=== PATIENT | female | born 1955 ===

== ENCOUNTER 2024-07-01 08:45 | Inpatient (IN) | payer OTHER ==
[~2024-07-01] VITALS: Ht 165.1 cm; Wt 59.9 kg
[2024-07-03 11:48] LABS: HEMATOCRIT 37.3 % (36.0-45.00); HEMOGLOBIN 12.6 g/dL (12.0-15.00); MEAN CELL VOLUME 88.7 fL (80.00-100.00); MEAN CORPUSCULAR HGB CONC 33.8 g/dl (32.0-36.0); PLATELET COUNT 250 K/uL (150-450); RED CELL DISTRIBUTION WIDTH 14.4 % (11.5-14.5)
[2024-07-03] MEDS ORDERED: VALSARTAN80 MG (11:51)
[2024-07-03] MEDS ORDERED: FLUTICASONE (11:52)
[2024-07-03] MEDS ORDERED: SALMETEROL (11:52)
[2024-07-03] MEDS ORDERED: ATROVENT (11:52)
[2024-07-03] MEDS ORDERED: VITAMIN D3 (11:53)
[2024-07-03] MEDS ORDERED: VITAMIN D2 (11:53)
[2024-07-03] MEDS ORDERED: PANADOL EXTRA500 MG (11:53)
[2024-07-03 12:03] LABS: PH,URINE 7.5 (5.0-8.0); URINE APPEARANCE Clear; URINE BILIRRUBIN Negative (NEGATIVE); URINE BLOOD Negative; URINE COLOR Yellow; URINE GLUCOSE Negative (NEGATIVE); URINE KETONE Negative (NEGATIVE); URINE LEUKOCYTE Negative; URINE NITRATE Negative; URINE PROTEIN Negative (NEGATIVE); URINE UROBILINOGEN 0.2 E.U./dl
[2024-07-03 12:07] LABS: URINE BACTERIA 138.4 uL (0.0-1933); URINE EPITHELIAL CELLS 2.9 uL (0.0-38.8); URINE RBC 3.6 uL (0.0-20.8); URINE WBC 3.2 uL (0.0-23.2)
[2024-07-03 12:29] LABS: INR 0.98; PARTIAL THROMBOPLASTIN TIME 26.9 SECONDS (22.0-34.0); PROTHROMBIN TIME 10.7 SECONDS (9.0-11.5)
[2024-07-03 12:34] LABS: ALBUMIN 3.8 gm/dL (3.4-5.0); BILIRUBIN TOTAL 1.2 mg/dL (0.3-1.2); CALCIUM 11.6 mg/dL (8.5-10.1); CREATININE SERUM 0.83 mg/dL (0.55-1.02); GFR 68.78; GLOBULINA 3.1 G/DL (2.4-3.5); POTASSIUM 3.55 mEq/L (3.5-5.1); TOTAL PROTEIN 6.9 gm/dL (6.4-8.2)
[2024-07-04] MEDS ORDERED: ADVAIR HFA 115/12 GM (09:00)
[2024-07-04] MEDS ORDERED: ATROVENT HFA12.9 GM (09:00)
[2024-07-04] MEDS ORDERED: VITAMIN D21250 MCG (09:01)
[2024-07-04] MEDS ORDERED: ACETAMINOPHEN500 M1 (09:01)
[2024-07-04] MEDS ORDERED: VITAMIN D31250 MC1 (09:01)
[2024-07-04] MEDS ORDERED: TRAMADOL HCL 50 MG TABLET PO SCH (12:56)
[2024-07-04] MEDS ORDERED: ACETAMINOPHEN 500 MG GEL..CAP PO SCH (12:57)
[2024-07-04] MEDS ORDERED: ENALAPRILAT DIHYDRATE 1.25 MG/ML VIAL IV PRN (13:00)
[2024-07-04] MEDS ORDERED: ONDANSETRON HCL 2 MG/ML VIAL IV PRN (13:00)
[2024-07-04] MEDS ORDERED: MORPHINE SULFATE 4 MG/ML VIAL IV ONE (14:20)
[2024-07-04] MEDS ORDERED: DEXAMETHASONE SODIUM PHOSPHATE 4 MG/ML VIAL IV NR (16:30)
[2024-07-04] MEDS ORDERED: CEFAZOLIN SODIUM 1,000 MG VIAL IV ONE (16:30)
[2024-07-04] MEDS ORDERED: DEXAMETHASONE SODIUM PHOSP/PF 10 MG/ML VIAL IV NR (16:30)
[2024-07-04] MEDS ORDERED: CYCLOBENZAPRINE HCL 5 MG TABLET PO SCH (17:00)
[2024-07-04 17:35] VITALS: BP 140/72; O2SAT 95
[2024-07-04] MEDS ORDERED: PANTOPRAZOLE SODIUM 40 MG/VIAL VIAL IV PUSH SCH (21:00)
[2024-07-05 00:38] VITALS: BP 103/59; O2SAT 97
[2024-07-05 08:00] VITALS: BP 107/58; O2SAT 100
== END 2024-07-05 14:00 | disposition home or self-care (01) | DRG 627 ==
LOC: SURH 07-04 06:00 → O/R 07-04 06:00 → SURH 07-04 08:45
PROVIDERS: ADMIT Surgery; ATTEND Surgery
PROC: 0GBL0ZZ Excision of Right Superior Parathyroid Gland, Open Approach (ICD-10-PCS; 2024-07-04)
PROC: 0GBM0ZZ Excision of Left Superior Parathyroid Gland, Open Approach (ICD-10-PCS; 2024-07-04)
PROC: 0GBN0ZZ Excision of Right Inferior Parathyroid Gland, Open Approach (ICD-10-PCS; principal; 2024-07-04 09:45)
DX: D35.1 Benign neoplasm of parathyroid gland (principal); Z20.822 Contact with and (suspected) exposure to COVID-19